=== PATIENT | male | born 1995 | race Caucasian/White ===

== ENCOUNTER 2018-08-07 21:07 | Emergency (ER) | payer OTHER ==
[2018-08-07 21:16] VITALS: TEMP 98.7
[2018-08-07] MEDS ORDERED: LORazepam 2 MG/ML INJ IV STA (21:29)
[2018-08-07] MEDS ORDERED: SODIUM CHLORIDE 0.9% 1,000 ML IV ONE (21:29)
--- NOTE | 2018-08-07 21:45 | ED ---
Medical Clearance HPI - General Source: police, RN notes reviewed, old records reviewed Mode of arrival: wheelchair <Lizet Valverde - Last Filed: 08/07/18 22:54> <Rosie Cook - Last Filed: 08/08/18 03:04> - General Chief complaint: Medical Clearance Stated complaint: Prison clearance Time Seen by Provider: 08/07/18 21:18 - History of Present Illness Initial comments: Patient is a 23-year-old male who presents the emergency department today after driving erratically. He arrived via police escort for senior care clearance. Patient reports that he uses cocaine and heroine in proximal and 45 minutes prior to arrival. Patient reportedly was driving erratically. He ran from his vehicle and was captured by the police. Patient states that he uses heroin and cocaine daily. Patient reports that he is complaining of some chest pain at this time. (Lizet Valverde) Home medications: Home Medications Medication Instructions Recorded Confirmed No Known Home Medications 08/07/18 08/07/18 Allergies/Adverse reactions: Allergies Allergy/AdvReac Type Severity Reaction Status Date / Time No Known Allergies Allergy Verified 08/07/18 21:55 Review of Systems ROS Other: All systems not noted in ROS Statement are negative. <Lizet Valverde - Last Filed: 08/07/18 22:54> ROS Other: All systems not noted in ROS Statement are negative. <Rosie Cook - Last Filed: 08/08/18 03:04> ROS Statement: Those systems with pertinent positive or pertinent negative responses have been documented in the HPI. Past Medical History Past Medical History: No Reported History History of Any Multi-Drug Resistant Organisms: None Reported Past Surgical History: Appendectomy Past Psychological History: Anxiety, Depression Smoking Status: Current every day smoker Past Alcohol Use History: None Reported Past Drug Use History: Heroin, Methamphetamine <Lizet Valverde - Last Filed: 08/07/18 22:54> General Exam Limitations: no limitations General appearance: alert, in no apparent distress, anxious Head exam: Present: atraumatic, normocephalic, normal inspection Eye exam: Present: normal appearance, PERRL, EOMI. Absent: scleral icterus, conjunctival injection, periorbital swelling ENT exam: Present: normal exam, mucous membranes moist Neck exam: Present: normal inspection. Absent: tenderness, meningismus, lymphadenopathy Respiratory exam: Present: normal lung sounds bilaterally. Absent: respiratory distress, wheezes, rales, rhonchi, stridor Cardiovascular Exam: Present: normal rhythm, tachycardia, normal heart sounds. Absent: systolic murmur, diastolic murmur, rubs, gallop, clicks GI/Abdominal exam: Present: soft, normal bowel sounds. Absent: distended, tenderness, guarding, rebound, rigid Extremities exam: Present: normal inspection, full ROM, normal capillary refill. Absent: tenderness, pedal edema, joint swelling, calf tenderness Back exam: Present: normal inspection Neurological exam: Present: alert, oriented X3, CN II-XII intact Psychiatric exam: Present: normal affect, normal mood Skin exam: Present: warm, dry, intact, normal color. Absent: rash <Lizet Valverde - Last Filed: 08/07/18 22:54> - General Exam Comments Initial Comments: 23-year-old male. Alert and oriented 3. Patient appears in no significant distress. Patient is handcuffed to bed. (Lizet Valverde) Course Vital Signs 08/07/18 08/07/18 08/07/18 21:13 22:02 22:56 Temperature 98.7 F Pulse Rate 130 H 99 86 Respiratory 18 18 16 Rate Blood Pressure 139/90 132/93 122/68 O2 Sat by Pulse 98 98 98 Oximetry Medical Decision Making - Lab Data Result diagrams: 08/07/18 21:45 08/07/18 21:45 <Lizet Valverde - Last Filed: 08/07/18 22:54> - Lab Data Result diagrams: 08/07/18 21:45 08/07/18 21:45 <Rosie Cook - Last Filed: 08/08/18 03:04> - Medical Decision Making Patient is a 23-year-old male who presents emergency Department with police seen in senior care clearance. The Patient was arrested after driving erratically. He reports that he used cocaine and heroin. Patient arrives to emergency d epartment today complaining of chest pain.. Very anxious,pt was tachycardic. EKG was reviewed and shows sinus tachycardia but no ST changes. Lab work was initiated Patient was given IV fluids and 1 mg of Ativan for anxiety and recent cocaine use and chest pain. Patient's lab work including troponin were negative for any acute changes. Patient was informed results. After reevaluation he complains of no chest pain. I discussed the Patient with normal active days he will be medically clear for her to incarceration at this time. (Lizet Valverde) I was available for consultation in the emergency department. The history and physical exam were done by the midlevel provider. I was consulted for this patient's care. I reviewed the case with the midlevel provider and based on their presentation of the patient, I agree with the assessment, medical decision making and plan of care as documented. (Rosie Cook) - Lab Data Lab Results 08/07/18 08/07/18 08/07/18 Range/Units 21:45 21:45 21:45 WBC 9.3 (3.8-10.6) k/uL RBC 4.82 (4.30-5.90) m/uL Hgb 15.0 (13.0-17.5) gm/dL Hct 44.5 (39.0-53.0) % MCV 92.2 (80.0-100.0) fL MCH 31.2 (25.0-35.0) pg MCHC 33.8 (31.0-37.0) g/dL RDW 12.2 (11.5-15.5) % Plt Count 279 (150-450) k/uL Neutrophils % 74 % Lymphocytes % 12 % Monocytes % 7 % Eosinophils % 4 % Basophils % 1 % Neutrophils # 6.9 (1.3-7.7) k/uL Lymphocytes # 1.1 (1.0-4.8) k/uL Monocytes # 0.7 (0-1.0) k/uL Eosinophils # 0.4 (0-0.7) k/uL Basophils # 0.1 (0-0.2) k/uL PT 11.7 (9.0-12.0) sec INR 1.1 (<1.2) APTT 26.7 (22.0-30.0) sec Sodium (137-145) mmol/L Potassium (3.5-5.1) mmol/L Chloride (98-107) mmol/L Carbon Dioxide (22-30) mmol/L Anion Gap mmol/L BUN (9-20) mg/dL Creatinine (0.66-1.25) mg/dL Est GFR (CKD-EPI)AfAm (>60 ml/min/1.73 sqM) Est GFR (CKD-EPI)NonAf (>60 ml/min/1.73 sqM) Glucose (74-99) mg/dL Calcium (8.4-10.2) mg/dL Total Bilirubin (0.2-1.3) mg/dL AST (17-59) U/L ALT (21-72) U/L Alkaline Phosphatase (38-126) U/L Troponin I <0.012 (0.000-0.034) ng/mL Total Protein (6.3-8.2) g/dL Albumin (3.5-5.0) g/dL 08/07/18 Range/Units 21:45 WBC (3.8-10.6) k/uL RBC (4.30-5.90) m/uL Hgb (13.0-17.5) gm/dL Hct (39.0-53.0) % MCV (80.0-100.0) fL MCH (25.0-35.0) pg MCHC (31.0-37.0) g/dL RDW (11.5-15.5) % Plt Count (150-450) k/uL Neutrophils % % Lymphocytes % % Monocytes % % Eosinophils % % Basophils % % Neutrophils # (1.3-7.7) k/uL Lymphocytes # (1.0-4.8) k/uL Monocytes # (0-1.0) k/uL Eosinophils # (0-0.7) k/uL Basophils # (0-0.2) k/uL PT (9.0-12.0) sec INR (<1.2) APTT (22.0-30.0) sec Sodium 137 (137-145) mmol/L Potassium 4.1 (3.5-5.1) mmol/L Chloride 104 (98-107) mmol/L Carbon Dioxide 24 (22-30) mmol/L Anion Gap 9 mmol/L BUN 12 (9-20) mg/dL Creatinine 0.94 (0.66-1.25) mg/dL Est GFR (CKD-EPI)AfAm >90 (>60 ml/min/1.73 sqM) Est GFR (CKD-EPI)NonAf >90 (>60 ml/min/1.73 sqM) Glucose 111 H (74-99) mg/dL Calcium 9.5 (8.4-10.2) mg/dL Total Bilirubin 0.8 (0.2-1.3) mg/dL AST 26 (17-59) U/L ALT 22 (21-72) U/L Alkaline Phosphatase 65 (38-126) U/L Troponin I (0.000-0.034) ng/mL Total Protein 6.1 L (6.3-8.2) g/dL Albumin 4.0 (3.5-5.0) g/dL 08/07/18 22:05 EKG shows sinus tachycardia, otherwise normal EKG. Ventricular rate of 10 6 bpm. CO interval 1:30 no seconds. QRS duration 90 ms. QT QTc is 354/470 ms. (Lizet Valverde) Disposition Is patient prescribed a controlled substance at d/c from ED?: No Time of Disposition: 22:57 <Lizet Valverde - Last Filed: 08/07/18 22:54> <Rosie Cook - Last Filed: 08/08/18 03:04> Clinical Impression: Substance abuse, Medical clearance for incarceration Disposition: HOME SELF-CARE Condition: Good Additional Instructions: Patient to go directly to senior care. Referrals: Krystal Silva MD [Primary Care Provider] - 1-2 days
[2018-08-07 22:08] LABS: Basophils # (A) 0.1 k/uL (0-0.2); Basophils % (A) 1 %; Eosinophils # (A) 0.4 k/uL (0-0.7); Eosinophils % (A) 4 %; HCT 44.5 % (39.0-53.0); Lymphocytes # (A) 1.1 k/uL (1.0-4.8); Lymphocytes % (A) 12 %; MCH 31.2 pg (25.0-35.0); MCHC 33.8 g/dL (31.0-37.0); MCV 92.2 fL (80.0-100.0); Mean Platelet Volume 6.6; Monocytes # (A) 0.7 k/uL (0-1.0); Monocytes % (A) 7 %; Neutrophils # (A) 6.9 k/uL (1.3-7.7); Neutrophils % (A) 74 %; Platelet Count 279 k/uL (150-450); RBC 4.82 m/uL (4.30-5.90); RDW 12.2 % (11.5-15.5); WBC 9.3 k/uL (3.8-10.6)
[2018-08-07 22:18] LABS: INR 1.1 (<1.2); Partial Thromboplastin Time 26.7 sec (22.0-30.0); Prothrombin Time 11.7 sec (9.0-12.0)
[2018-08-07 22:21] LABS: ALT 22 U/L (21-72); AST 26 U/L (17-59); Alkaline Phosphatase 65 U/L (38-126); Anion Gap 9 mmol/L; Blood Urea Nitrogen 12 mg/dL (9-20); Calcium 9.5 mg/dL (8.4-10.2); Carbon Dioxide 24 mmol/L (22-30); Chloride 104 mmol/L (98-107); Glucose 111 mg/dL (74-99); Potassium 4.1 mmol/L (3.5-5.1); Sodium 137 mmol/L (137-145); Total Bilirubin 0.8 mg/dL (0.2-1.3); Total Protein 6.1 g/dL (6.3-8.2)
[2018-08-07 22:58] VITALS: BP 122/68; PULSE 86; RESP 16
== END 2018-08-07 23:01 | disposition home or self-care (01) ==
LOC: EC 21:07
DX: Z02.89 Encounter for other administrative examinations (principal); F19.10 Other psychoactive substance abuse, uncomplicated; R07.9 Chest pain, unspecified; F17.200 Nicotine dependence, unspecified, uncomplicated
CPT/HCPCS: 36415; 93005; 80053; 84484; 85025; 85610; 85730; 99284; 96374; 96361; J2060

== ENCOUNTER 2024-11-03 19:38 | Emergency (ER) | payer OTHER ==
--- NOTE | 2024-11-03 20:06 | ED ---
General Adult HPI - General Stated complaint: Abd pain,vomiting Time Seen by Provider: 11/03/24 19:54 Source: patient, RN notes reviewed Mode of arrival: ambulatory Limitations: no limitations - History of Present Illness Initial comments: 29-year-old presents emergency department complaint abdominal pain. Patient states progressive getting worse. Patient states that he has upper abdominal pain states he vomits typically every morning worsening symptoms and gets better throughout the day. Patient states that he has tried some Pepto-Bismol, tried some Tums yet has some relief short-term. Stated prior appendectomy no prior EGDs no other complaints. - Related Data Previous Rx's Medication Instructions Recorded Ondansetron Odt [Zofran Odt] 4 mg PO Q8HR PRN #10 tab 11/03/24 Pantoprazole [Protonix] 40 mg PO DAILY #30 tab 11/03/24 Allergies Allergy/AdvReac Type Severity Reaction Status Date / Time No Known Allergies Allergy Verified 11/03/24 21:09 Review of Systems ROS Statement: Those systems with pertinent positive or pertinent negative responses have been documented in the HPI. ROS Other: All systems not noted in ROS Statement are negative. Past Medical History Past Medical History: No Reported History History of Any Multi-Drug Resistant Organisms: None Reported Past Surgical History: Appendectomy Past Psychological History: Anxiety, Depression Past Alcohol Use History: None Reported Past Drug Use History: Heroin, Methamphetamine General Exam Limitations: no limitations General appearance: alert, in no apparent distress Head exam: Present: atraumatic, normocephalic, normal inspection Eye exam: Present: normal appearance, PERRL, EOMI. Absent: scleral icterus, conjunctival injection, periorbital swelling ENT exam: Present: normal exam, normal oropharynx, mucous membranes moist Neck exam: Present: normal inspection, full ROM. Absent: tenderness, meningismus, lymphadenopathy Respiratory exam: Present: normal lung sounds bilaterally. Absent: respiratory distress, wheezes, rales, rhonchi, stridor Cardiovascular Exam: Present: regular rate, normal rhythm, normal heart sounds. Absent: systolic murmur, diastolic murmur, rubs, gallop, clicks GI/Abdominal exam: Present: soft, tenderness, normal bowel sounds. Absent: distended, guarding, rebound, rigid Course Vital Signs 11/03/24 21:06 Temperature 98 F Pulse Rate 60 Respiratory 18 Rate Blood Pressure 122/78 O2 Sat by Pulse 99 Oximetry Medical Decision Making - Medical Decision Making Was pt. sent in by a medical professional or institution (, IAN, DIRECTOR OF ATHLETICS, urgent care, hospital, or penitentiary...) When possible be specific @ -No Did you speak to anyone other than the patient for history (EMS, parent, family, police, friend...)? What history was obtained from this source @ -No Did you review nursing and triage notes (agree or disagree)? Why? @ -I reviewed and agree with nursing and triage notes Were old charts reviewed (outside hosp., previous admission, EMS record, old EKG, old radiological studies, urgent care reports/EKG's, penitentiary records)? Report findings @ -No old charts were reviewed Differential Diagnosis (chest pain, altered mental status, abdominal pain women, abdominal pain men, vaginal bleeding, weakness, fever, dyspnea, syncope, headache, dizziness, GI bleed, back pain, seizure, CVA, palpatations, mental health, musculoskeletal)? @ -Differential Abdominal Pain Men: Appendicitis, cholecystitis, diverticulosis, ischemic bowel, pancreatitis, hepatitis, UTI, gastroenteritis, AAA, incarcerated hernia, bowel obstruction, constipation, inflammatory bowel, hepatitis, peptic ulcer disease, splenic infarction, perforated viscus, testicular torsion, this is not meant to be an all-inclusive list EKG interpreted by me (3pts min.). @ -None X-rays interpreted by me (1pt min.). @ -None done CT interpreted by me (1pt min.). @ -CT abdomen showing mild eventrated changes around the jejunum U/S interpreted by me (1pt. min.). @ -None done What testing was considered but not performed or refused? (CT, X-rays, U/S, labs)? Why? @ -None What meds were considered but not given or refused? Why? @ -None Did you discuss the management of the patient with other professionals (professionals i.e. [employer] [place], DIRECTOR OF ATHLETICS, lab, RT, psych nurse, social work coordinator, bone puller, teacher, coastal/harbor defense officer, corrections caseworker)? Give summary @ -No Was smoking cessation discussed for >3mins.? @ -No Was critical care preformed (if so, how long)? @ -No Were there social determinants of health that impacted care today? How? ( Homelessness, low income, unemployed, alcoholism, drug addiction, transportation, low edu. Level, literacy, decrease access to med. care, fpc, rehab)? @ -No Was there de-escalation of care discussed even if they declined (Discuss DNR or withdrawal of care, Hospice)? DNR status @ -No What co-morbidities impacted this encounter? (DM, HTN, Smoking, COPD, CAD, Cancer, CVA, ARF, Chemo, Hep., AIDS, mental health diagnosis, sleep apnea, morbid obesity)? @ -None Was patient admitted / discharged? Hospital course, mention meds given and route, prescriptions, significant lab abnormalities, going to OR and other pertinent info. @ -Discharge patient laboratory studies and CT reviewed patient has mild she denies unlikely to have underlying peptic ulcer disease. Patient discharged on Protonix and follow-up with GI. Undiagnosed new problem with uncertain prognosis? @ -No Drug Therapy requiring intensive monitoring for toxicity (Heparin, Nitro, Insulin, Cardizem)? @ -No Were any procedures done? @ -No Diagnosis/symptom? @ -Abdominal pain Acute, or Chronic, or Acute on Chronic? @ -Acute Uncomplicated (without systemic symptoms) or Complicated (systemic symptoms)? @ -Complicated Side effects of treatment? @ -No Exacerbation, Progression, or Severe Exacerbation? @ -No Poses a threat to life or bodily function? How? (Chest pain, [place], [place], pneumonia, PE, COPD, DKA, ARF, appy, cholecystitis, CVA, Diverticulitis, Homicidal, Suicidal, threat to staff... and all critical care pts) @ -No - Lab Data Result diagrams: 11/03/24 21:15 11/03/24 21:15 Lab Results 11/03/24 11/03/24 Range/Units 21:15 21:15 WBC 9.16 (4.50-10.00) 10*3/uL RBC 4.75 (4.40-5.60) 10*6/uL Hgb 15.0 (13.0-17.0) g/dL Hct 43.2 (39.6-50.0) % MCV 90.9 (80.0-97.0) fL MCH 31.6 (27.0-32.0) pg MCHC 34.7 (32.0-37.0) g/dL Plt Count 264 (140-440) 10*3/uL MPV 8.5 L (9.5-12.2) fL Immature Gran % (Auto) 0.2 % Neutrophils % 49.9 % Lymphocytes % 33.1 % Monocytes % 8.4 % Eosinophils % 7.3 % Basophils % 1.1 % Immature Gran # 0.02 (0.00-0.04) 10*3/uL Neutrophils # 4.57 (1.80-7.70) 10*3/uL Lymphocytes # 3.03 (0.90-5.00) 10*3/uL Monocytes # 0.77 (0.20-1.00) 10*3/uL Eosinophils # 0.67 H (0.04-0.35) 10*3/uL Basophils # 0.10 (0.00-0.10) 10*3/uL Sodium 139 (137-145) mmol/L Potassium 4.3 (3.5-5.1) mmol/L Chloride 99 (98-107) mmol/L Carbon Dioxide 29 (22-30) mmol/L Anion Gap 11 mmol/L BUN 15 (9-20) mg/dL Creatinine 1.17 (0.66-1.25) mg/dL Est GFR (CKD-EPI)AfAm >90 (>60 ml/min/1.73 sqM) Est GFR (CKD-EPI)NonAf 83 (>60 ml/min/1.73 sqM) Glucose 91 (74-99) mg/dL Calcium 10.5 H (8.4-10.2) mg/dL Total Bilirubin 0.6 (0.2-1.3) mg/dL AST 35 (17-59) U/L ALT 17 (4-49) U/L Alkaline Phosphatase 86 (38-126) U/L Total Protein 7.6 (6.3-8.2) g/dL Albumin 4.9 (3.5-5.0) g/dL Lipase 91 (23-300) U/L Disposition Clinical Impression: Abdominal pain Disposition: HOME SELF-CARE Condition: Stable Instructions (If sedation given, give patient instructions): Abdominal Pain (ED) Additional Instructions: Please return to the Emergency Department if symptoms worsen or any other concerns. Prescriptions: Pantoprazole [Protonix] 40 mg PO DAILY #30 tab Ondansetron Odt [Zofran Odt] 4 mg PO Q8HR PRN #10 tab PRN Reason: Nausea Is patient prescribed a controlled substance at d/c from ED?: No Referrals: None,Stated [Primary Care Provider] - 1-2 days Mary Aponte MD [STAFF PHYSICIAN] - 1-2 days Time of Disposition: 23:12
[2024-11-03 21:09] VITALS: RESP 18
[2024-11-03 21:24] LABS: Basophils % (A) 1.1 %; Eosinophils # (A) 0.67 10*3/uL (0.04-0.35); Eosinophils % (A) 7.3 %; HCT 43.2 % (39.6-50.0); Lymphocytes # (A) 3.03 10*3/uL (0.90-5.00); Lymphocytes % (A) 33.1 %; MCH 31.6 pg (27.0-32.0); MCHC 34.7 g/dL (32.0-37.0); MCV 90.9 fL (80.0-97.0); Mean Platelet Volume 8.5 fL (9.5-12.2); Monocytes # (A) 0.77 10*3/uL (0.20-1.00); Monocytes % (A) 8.4 %; Neutrophils # (A) 4.57 10*3/uL (1.80-7.70); Neutrophils % (A) 49.9 %; Platelet Count 264 10*3/uL (140-440); RBC 4.75 10*6/uL (4.40-5.60); RDW 11.2 % (11.5-14.5); WBC 9.16 10*3/uL (4.50-10.00)
--- NOTE | 2024-11-03 22:00 | CT ---
EXAMINATION TYPE: CT abdomen pelvis w con DATE OF EXAM: 11/03/2024 9:52 PM COMPARISON: None. CLINICAL INDICATION: Male, 29 years old with history of abdominal pain, upper abd pain TECHNIQUE: Axial images were obtained from above the diaphragm to the pubic rami in the axial plane a t 5 mm thick sections. Reconstructed images are reviewed on the computer in the coronal plane. CONTRAST: 100 mL of Isovue 300. Study performed without Oral Contrast DLP: 557.2 mGycm, Automated exposure control for dose reduction was used. FINDINGS: Limited CT sections are obtained the lung bases. The lung bases are clear. CT ABDOMEN: Liver: Normal Spleen: Normal Pancreas: Normal Adrenal glands: The adrenal glands are normal. Gallbladder: Normal Kidneys: No masses are evident. No hydronephrosis is present. No cysts are present. Aorta: Normal Inferior vena cava: Normal. CT PELVIS: There is mild prominence of small bowel loops with fluid mild thickened lowe present. Correlate for jejunitis. No obstruction is evident. Colon appears normal. Fecal debris and air is present. Distal i leum has a normal caliber. No sonographic transition is evident. Appendix: Not identified. No dilated tubular structure or inflammatory change evident. Urinary bladder: Decompressed and cannot be evaluated Genitourinary structures: Prostate appears normal Osseous structures: No suspicious lytic or sclerotic lesions. IMPRESSION: 1. Prominent small bowel within the midabdomen with more normal caliber distal ileum. Correlate for jejunitis. No obstruction is identified. [facility], , 11/03/2024 9:57 PM
[2024-11-03] MEDS: MAG HYDROX/AL HYDROX/SIMETH 30 ML CUP PO STA (22:05)
[2024-11-03] MEDS: PANTOPRAZOLE 40 MG/10 ML VIAL IVP STA (22:06)
[2024-11-03 22:07] LABS: ALT 17 U/L (4-49); AST 35 U/L (17-59); African American GFR (CKD) >90 (>60 ml/min/1.73 sqM); Albumin 4.9 g/dL (3.5-5.0); Alkaline Phosphatase 86 U/L (38-126); Anion Gap 11 mmol/L; Blood Urea Nitrogen 15 mg/dL (9-20); Calcium 10.5 mg/dL (8.4-10.2); Carbon Dioxide 29 mmol/L (22-30); Chloride 99 mmol/L (98-107); Glucose 91 mg/dL (74-99); Lipase 91 U/L (23-300); Non-African American GFR(CKD) 83 (>60 ml/min/1.73 sqM); Potassium 4.3 mmol/L (3.5-5.1); Sodium 139 mmol/L (137-145); Total Bilirubin 0.6 mg/dL (0.2-1.3); Total Protein 7.6 g/dL (6.3-8.2)
[2024-11-03] MEDS: SODIUM CHLORIDE 0.9% 1,000 ML IV ONE (22:08)
[2024-11-03] MEDS: KETOROLAC 15 MG/ML 1 ML VIAL IVP STA (23:33)
[2024-11-03 23:50] VITALS: BP 110/63; PULSE 68; TEMP 97.8
[2024-11-03 23:57] LABS: Appearance,Urine Cloudy (Clear); Bilirubin,Urine Negative (Negative); Blood,Urine Negative (Negative); Color,Urine Light Green; Glucose,Urine (UA) Negative (Negative); Hyaline Casts,Urine 11 /lpf (0-2); Ketones,Urine Negative (Negative); Leukocyte Esterase,Urine Negative (Negative); Mucus,Urine Occasional /hpf; Nitrite,Urine Negative (Negative); Protein,Urine Negative (Negative); RBC,Urine 1 /hpf (0-5); Specific Gravity,Urine 1.027 (1.001-1.035); Squamous Epithelial Cell,Urine <1 /hpf (0-4); Urobilinogen,Urine <2.0 mg/dL (<2.0); WBC,Urine <1 /hpf (0-5)
[2024-11-04 00:10] LABS: Amphetamine Screen,Urine Not Detected (NotDetected); Barbiturate Screen,Urine Not Detected (NotDetected); Benzodiazepines Screen,Urine Not Detected (NotDetected); Cocaine Screen,Urine Not Detected (NotDetected); Methadone Screen, Urine Detected (NotDetected); Opiate Screen,Urine Not Detected (NotDetected); Oxycodone Screen, Urine Not Detected (NotDetected); Phencyclidine Screen,Urine Not Detected (NotDetected); Tricyclic Antidepressant,Urine Not Detected (NotDetected); Urn Cannabinoid Scrn Detected (NotDetected)
== END 2024-11-04 00:13 | disposition home or self-care (01) ==
LOC: EC 19:38
DX: R10.10 Upper abdominal pain, unspecified (principal)
CPT/HCPCS: 36415; 80053; 83690; 85025; 81001; 80306; 74177; 99284; 96374; 96375; 96361; J1885; Q9967; J2470